=== PATIENT | female | born 1985 | race Caucasian/White ===

== ENCOUNTER → 2017-03-03 | Outpatient (CLI) | payer OTHER ==
--- NOTE | 2017-03-03 13:35 | RADIOLOGY REPORT (SQ) ---
EXAM DESCRIPTION: U/S NON-OB PELVIS W/O DOP COMPLETED DATE/TIME: 03/03/2017 1:11 pm REASON FOR STUDY: IUD PLACEMENT. Z30.431 ENCOUNTER FOR ROUTINE CHECKING OF INTRAUTERINE CONTR Z30.43 1 ENCOUNTER FOR ROUTINE CHECKING OF INTRAUTERINE CONTR COMPARISON: None. TECHNIQUE: Dynamic and static grayscale images acquired of the pelvis via transabdominal approach an d recorded on PACS. Additional selected color Doppler and spectral images recorded. LIMITATIONS: Adnexal bowel gas FINDINGS: UTERUS: Contour normal. No mass. Uterus is 9.5 by 5.3 x 3.6 cm in size. ENDOMETRIAL STRIPE: No focal or generalized thickening. No masses. IUD in the endometrial canal in g ood positioning. CERVIX: No nabothian cysts. RIGHT OVARY: Not visualized due to adnexal bowel gas RIGHT OVARY DOPPLER: Not performed LEFT OVARY: Not visualized due to adnexal bowel gas LEFT OVARY DOPPLER: Not performed FREE FLUID: None noted. OTHER: No other significant finding. IMPRESSION: IUD in the endometrial canal. Normal size uterus. No free pelvic fluid. Ovaries not visualized due to adnexal bowel gas TECHNICAL DOCUMENTATION: JOB ID: [id number] [employer]- All Rights Reserved
== END ==
LOC: RAD 13:27
PROVIDERS: ATTEND Nurse Practitioner Women's Health
DX: Z30.431 Encounter for routine checking of intrauterine contraceptive device (principal)
CPT/HCPCS: 76856